=== PATIENT | female | born 2000 | race African-American/Black ===

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

== ENCOUNTER → 2021-06-24 | Outpatient (CLI) | payer BC ==
[2021-06-24 10:47] LABS: BASO # 0.1 10^3/uL (0.0-0.2); BASO % 0.6 % (0.0-1.0); EOS # 0.1 10^3/uL (0.0-0.5); EOS % 0.9 % (0.0-3.0); HEMATOCRIT 40.3 % (36.0-47.0); LYMPH # 3.3 10^3/uL (1.5-5.0); LYMPH % 38.2 % (24.0-44.0); MEAN CORPUSCULAR HGB CONC 32.3 g/dl (32.0-36.5); MEAN CORPUSCULAR VOLUME 86.9 fl (80.0-96.0); MONO # 0.8 10^3/uL (0.0-0.8); MONO % 9.7 % (2.0-8.0); NEUTROPHILS # 4.3 10^3/uL (1.5-8.5); NEUTROPHILS % 50.4 % (36.0-66.0); PLATELET COUNT, AUTOMATED 329 10^3/uL (150-450); RED BLOOD COUNT 4.64 10^6/uL (4.00-5.40); WHITE BLOOD COUNT 8.6 10^3/uL (4.0-10.0)
[2021-06-24 11:24] LABS: FREE T4 0.95 NG/DL (0.78-1.33); HCG, SERUM QUANTITATIVE < 1.0 MIU/ML
[2021-06-25 13:18] LABS: FOLLICLE STIMULATING HORMONE 3.1 mIU/mL; LUTEINIZING HORMONE 2.9 mIU/mL; PROLACTIN 22.8 NG/ML
== END ==
LOC: M WUC 08:20
PROVIDERS: ATTEND Physician Assistant
DX: N92.6 Irregular menstruation, unspecified (principal); N91.1 Secondary amenorrhea

== ENCOUNTER → 2021-06-24 | Outpatient (CLI) | payer BC ==
[2021-06-24 11:13] LABS: HCG, SERUM QUALITATIVE NEGATIVE (NEGATIVE)
== END ==
LOC: M WUC 08:17
PROVIDERS: ATTEND Family Medicine
DX: N91.2 Amenorrhea, unspecified (principal)

== ENCOUNTER → 2021-09-17 | Outpatient (REF) | payer BC | LOC: M LAB REF 15:51 | PROVIDERS: ATTEND Student in an Organized Health Care Education/Training Program | DX: N39.0 Urinary tract infection, site not specified (principal) ==

== ENCOUNTER → 2021-10-22 | Outpatient (REF) | payer BC ==
[2021-10-22 19:16] LABS: GC DNA AMPLIFICATION NEGATIVE (NEGATIVE)
== END ==
LOC: M LAB REF 16:44
PROVIDERS: ATTEND Physician Assistant
DX: R11.2 Nausea with vomiting, unspecified (principal)

== ENCOUNTER 2021-11-12 02:39 | Emergency (ER) | payer BC ==
[~2021-11-12] VITALS: Ht 157.5 cm; Wt 109.1 kg
[2021-11-12 05:19] LABS: BASO % 0.4 % (0.0-1.0); EOS # 0.1 10^3/uL (0.0-0.5); HEMATOCRIT 42.1 % (36.0-47.0); LYMPH # 3.9 10^3/uL (1.5-5.0); LYMPH % 38.7 % (24.0-44.0); MEAN CORPUSCULAR HEMOGLOBIN 28.5 pg (27.0-33.0); MEAN CORPUSCULAR HGB CONC 33.3 g/dl (32.0-36.5); MEAN CORPUSCULAR VOLUME 85.7 fl (80.0-96.0); MONO # 0.8 10^3/uL (0.0-0.8); MONO % 7.8 % (2.0-8.0); NEUTROPHILS # 5.2 10^3/uL (1.5-8.5); NEUTROPHILS % 51.8 % (36.0-66.0); PLATELET COUNT, AUTOMATED 317 10^3/uL (150-450); RED BLOOD COUNT 4.91 10^6/uL (4.00-5.40); WHITE BLOOD COUNT 10.1 10^3/uL (4.0-10.0)
[2021-11-12 05:56] LABS: BLOOD UREA NITROGEN 10 MG/DL (7-18); CALCIUM LEVEL 9.3 MG/DL (8.5-10.1); CARBON DIOXIDE LEVEL 24 mmol/L (20-29); CHLORIDE LEVEL 108 MEQ/L (98-107); CREATININE FOR GFR 0.56 MG/DL (0.55-1.30); GLUCOSE, FASTING 107 MG/DL (70-100); MAGNESIUM LEVEL 1.7 MG/DL (1.8-2.4); POTASSIUM SERUM 4.4 MEQ/L (3.5-5.1); SODIUM LEVEL 140 MEQ/L (136-145)
[2021-11-12 05:57] LABS: CK-MB VALUE MASS 1.2 NG/ML (<3.6); MB/CK RELATIVE INDEX 0.4 (< OR =4)
[2021-11-12 06:13] LABS: HCG, SERUM QUALITATIVE NEGATIVE (NEGATIVE)
[2021-11-12] MEDS ORDERED: PANTOPRAZOLE 40MG VIAL IV ONE (06:30)
[2021-11-12] MEDS ORDERED: ACETAMINOPHEN 325 MG TAB PO ONE (06:30)
[2021-11-12 07:06] LABS: CK-MB VALUE MASS 1.1 NG/ML (<3.6); MB/CK RELATIVE INDEX 0.41 (< OR =4)
[2021-11-12] MEDS ORDERED: OMEP10CASR PO (08:37)
[2021-11-12 08:59] VITALS: BP 136/96
== END 2021-11-12 09:08 | disposition home or self-care (01) ==
LOC: M ED 02:39
DX: M94.0 Chondrocostal junction syndrome [Tietze] (principal); I10 Essential (primary) hypertension; K21.9 Gastro-esophageal reflux disease without esophagitis; F41.9 Anxiety disorder, unspecified; Z79.899 Other long term (current) drug therapy
CPT/HCPCS: 36415; 71045; 80048; 82550; 82553; 83735; 84484; 84703; 85025; 85379; 93005; 96374; 99284; C9113